=== PATIENT | female | born 1940 | race Caucasian/White ===

== ENCOUNTER 2021-12-09 13:31 | Outpatient (CLI) | payer MEDICARE, BC ==
[2021-12-09 14:53] LABS: Hemoglobin 13.9 g/dL (12.0-15.5); Mean Corpuscular HGB CONC 33.9 g/dL (32.0-36.0); Mean Corpuscular Hemoglobin 31.4 pg (27.0-33.0); Mean Corpuscular Volume 92.8 fl (81.6-98.3); Mean Platelet Volume 9.9 fl (7.4-10.4); Platelet Count 326 10x3/uL (150-450); RBC Distribution Width 12.4 % (11.5-14.5); Red Blood Cell (RBC) Count 4.42 10x6/uL (3.90-5.03); White Blood Cell (WBC) Count 7.8 10x3/uL (3.5-10.5)
[2021-12-09 15:09] LABS: Anion Gap 13 mmol/L (10-20); BUN (Urea Nitrogen) 11 mg/dL (9.8-20.1); Calc. Creatinine Clearance 0 mL/min (70-130); Calcium 9.1 mg/dL (7.8-10.44); Carbon Dioxide 23 mmol/L (23-31); Chloride 106 mmol/L (98-107); Glucose 110 mg/dL (83-110); Potassium 4.6 mmol/L (3.5-5.1); Sodium 137 mmol/L (136-145)
[2021-12-10 08:33] LABS: SARS-CoV-2 PCR by NAA Not Detected (NotDetected)
== END 2021-12-09 13:32 | disposition home or self-care (01) ==
LOC: CSHLAB 13:31
PROVIDERS: ATTEND Otolaryngology Otolaryngic Allergy
DX: Z01.818 Encounter for other preprocedural examination (principal); Z20.822 Contact with and (suspected) exposure to COVID-19; R22.1 Localized swelling, mass and lump, neck
CPT/HCPCS: 80048; 85027; 93005; 93010; U0003; U0005

== ENCOUNTER 2021-12-14 07:12 | Day surgery (SDC) | payer MEDICARE, BC ==
[2021-12-08 12:42] VITALS: BMI 26.6
[2021-12-14] MEDS ORDERED: Lidocaine 1% MPF 2 ML VIAL ONE (07:19)
[2021-12-14] MEDS ORDERED: Ondansetron PF 4 MG/2 ML Vial ONE (07:39)
[2021-12-14] MEDS ORDERED: Fentanyl 100 MCG/2 ML VIAL ONE (07:39)
[2021-12-14] MEDS ORDERED: PROPOFOL 20 ML ONE (07:39)
[2021-12-14] MEDS ORDERED: Dexamethasone 4 mg/ml Vial ONE (07:39)
[2021-12-14] MEDS ORDERED: Lidocaine 2% PF 5 ML VIAL ONE (07:40)
[2021-12-14] MEDS ORDERED: CEFAZOLIN 1 GM VIAL ONE (07:53)
[2021-12-14] MEDS ORDERED: Lidocaine 1% w/Epinephrine 1:100K 20 ML VIAL ONE (08:08)
[2021-12-14] MEDS ORDERED: ePHEDrine Sulfate 50 MG/10 ML VIAL ONE (08:30)
== END 2021-12-14 10:20 | disposition home or self-care (01) ==
LOC: CSHSDC 07:12
PROVIDERS: ATTEND Otolaryngology Otolaryngic Allergy
DX: C83.31 Diffuse large B-cell lymphoma, lymph nodes of head, face, and neck (principal); L82.1 Other seborrheic keratosis; E21.3 Hyperparathyroidism, unspecified; F41.9 Anxiety disorder, unspecified; Z79.899 Other long term (current) drug therapy
CPT/HCPCS: 88184; 88305; 88307; 88341; 88342; 88360; J0690; J1100; J2001; J2405; J2704; J3010